=== PATIENT | female | born 1990 | race American Indian/Alaskan Native ===

== ENCOUNTER 2019-09-15 13:31 | Emergency (ER) | payer MEDICAID ==
[~2019-09-15] VITALS: Ht 165.1 cm; Wt 95.0 kg
[2019-09-15 13:57] VITALS: BP 126/65
== END 2019-09-15 14:50 | disposition home or self-care (01) ==
LOC: ER 13:32
DX: Z03.818 Encounter for observation for suspected exposure to other biological agents ruled out (principal)
CPT/HCPCS: 36415; 99283; U0003